=== PATIENT | female | born 1950 | race Caucasian/White ===

== ENCOUNTER 2021-01-15 17:12 | Emergency (ER) | payer MEDICARE, OTHER, SELFPAY ==
[~2021-01-15] VITALS: Ht 167.6 cm; Wt 146.1 kg
--- NOTE | 2021-01-15 17:35 | NUR ---
PT PRESENTS TO ED WITH C/O BACK PAIN THAT RADIATES R HIP AND L KNEE, PT ALSO STATES DIARRHEA AND OCCASIONAL URINARY INCONTINENCE X3 DAYS. PT A&O, RESPS EVEN AND UNLABORED. CALL LIGHT IN REACH.
[2021-01-15] MEDS ORDERED: OXYcodone IR 5MG TABLET ONE ×2 (18:26→21:23)
[2021-01-15] MEDS ORDERED: OXYcodone IR 5MG TABLET PO ONE ×2 (18:30→21:30)
--- NOTE | 2021-01-15 18:32 | NUR ---
PT MEDICATED PER ORDER, TOLERATED WELL. PT A&O, RESPS EVEN AND UNLABORED, VSS, NADN. CALL LIGHT IN REACH, FRIEND AT BEDSIDE.
[2021-01-15 18:35] LABS: BASOPHILS % (AUTO) 1 % (0-1); EOSINOPHILS % (AUTO) 3 % (1-7); LYMPHOCYTES % (AUTO) 34 % (22-44); MEAN CORPUSCULAR HEMOGLOBIN 32.4 pg (27.0-34.8); MEAN CORPUSCULAR HGB CONC 33.5 g/dL (32.4-35.8); MONOCYTES % (AUTO) 6 % (2-9); NEUTROPHILS % (AUTO) 57 % (42-75); PLATELET COUNT 245 x10^3/uL (130-400); RED CELL DISTRIBUTION WIDTH 14.2 % (9.6-15.2)
[2021-01-15 18:36] LABS: MD NO
--- NOTE | 2021-01-15 18:38 | NUR ---
PT TO MRI
[2021-01-15 18:44] LABS: CHLORIDE 108 mmol/L (98-107)
--- NOTE | 2021-01-15 18:49 | NUR ---
RECEIVED REPORT FROM BENITA MANZANO. ASSUMED PT CARE.
[2021-01-15 18:52] LABS: ANION GAP 11 mmol/L (5-15); CALCIUM 8.7 mg/dL (8.5-10.1); CREATININE 0.76 mg/dL (0.55-1.02)
--- NOTE | 2021-01-15 19:05 | NUR ---
YEHUDA FROM MRI CALLED AND STATES PT MOVING TOO MUCH FOR MRI SECONDARY TO PAIN. SPOKE W/ ERP DR. LUNA NOTIFIED. ERP STATES SINCE PT MEDICATED AT 1829 TO WAIT UNTIL PAIN MED KICKS IN. NO NEW ORDERS. YEHUDA FROM MRI NOTIFIED.
--- NOTE | 2021-01-15 19:28 | NUR ---
PT REMAINS IN MRI.
--- NOTE | 2021-01-15 20:07 | NUR ---
PT RESTING ON GURNEY. NADN. COTTER.
[2021-01-15] MEDS ORDERED: DEXAMETHASONE 4 MG TABLET PO ONE (20:30)
[2021-01-15 20:54] VITALS: BP 117/52
[2021-01-15] MEDS ORDERED: DEXAMETHASONE 4 MG TABLET ONE (21:11)
== END 2021-01-15 21:27 | disposition home or self-care (01) ==
LOC: ED 20:58
DX: M47.816 Spondylosis without myelopathy or radiculopathy, lumbar region (principal); M54.41 Lumbago with sciatica, right side; M51.26 Other intervertebral disc displacement, lumbar region; I10 Essential (primary) hypertension; E03.9 Hypothyroidism, unspecified
CPT/HCPCS: 36415; 72148; 80048; 85025; 99285